=== PATIENT | male | born 1990 | race Caucasian/White ===

== ENCOUNTER 2023-09-15 12:01 | Emergency (ER) | payer BC, SELFPAY ==
[2023-09-15 12:02] VITALS: BP 126/76; PULSE 93; RESP 16; TEMP 36.6; O2SAT 96; BMI 26.2
--- NOTE | 2023-09-15 12:27 | EX.ED.DYSGE1 ---
HPI <AMARIS Choudhary - Last Filed: 09/15/23 16:37> History of Present Illness Chief Complaint: Nausea/Vomiting/Diarrhea Narrative Narrative: Patient presenting today due to nausea, vomiting, and diarrhea that started yesterday evening. He reports that his just gave to their daughter yesterday afternoon here at the hospital. He began feeling nauseous towards the evening and has had persistent watery stools and 1 episode of vomiting. He denies any fevers, chills, abdominal pain, melena, hematochezia, urinary symptoms, and hematemesis. He denies any history of abdominal surgery. [facility] <AMARIS Choudhary - Last Filed: 09/15/23 16:37> [facility] Medical History SVT (supraventricular tachycardia) Home Medications ondansetron 4 mg disintegrating tablet 4 mg PO Q8H PRN PRN Nausea #10 tabs 09/15/23 [Rx Last Taken Unknown] Allergy/AdvReac Type Severity Reaction Status Date / Time No Known Allergies Allergy Verified 09/15/23 12:03 Social History Smoking Status: Never smoker ROS <AMARIS Choudhary - Last Filed: 09/15/23 16:37> ROS ED Constitutional Constitutional ED: Denies chills or fever(s) Cardiovascular Cardiovascular: Denies chest pain Respiratory/Chest Respiratory/Chest: Denies cough or dyspnea Gastrointestinal Gastrointestinal: Reports diarrhea, nausea and vomiting; Denies abdominal pain, constipation or melena Genitourinary Genitourinary ED: Denies dysuria, hematuria or urinary urgency Musculoskeletal Musculoskeletal: Denies arthralgias or myalgias Integumentary Denies rash Neurologic Neurologic: Denies weakness EXAM <AMARIS Choudhary - Last Filed: 09/15/23 16:37> Physical Exam Const Vital Signs: 09/15/23 12:02 Temperature 97.8 F Temperature Source Temporal Pulse Rate 93 Respiratory Rate 16 Blood Pressure 126/76 H Blood Pressure Mean 92 Pulse Ox 96 Oxygen Delivery Method Room Air Positive well nourished, well developed and no apparent distress General Appearance ED: well developed HEENT Reports normocephalic and head/scalp atraumatic HEENT Narrative: Dry mucous membranes Eyes PERRL and EOMs intact bilaterally Neck full ROM and supple Chest Wall inspection of chest normal Resp normal respiratory effort and clear to auscultation bilaterally Cardio regular rate and regular rhythm GI soft to palpation, non-tender, non-distended and no masses Back/Spine normal ROM and normal to inspection Extremity normal to inspection and full ROM Neuro oriented x3, CN's II-XII intact bilaterally, moves all extremities, no focal motor deficits and no sensory deficits noted Sensorium / Orientation: awake and alert Psych mental status grossly normal and thought process normal Skin no rashes or lesions noted and no wounds <Dr. Dameon Baer MD - Last Filed: 09/15/23 13:54> Physical Exam Const Vital Signs: 09/15/23 12:02 Temperature 97.8 F Temperature Source Temporal Pulse Rate 93 Respiratory Rate 16 Blood Pressure 126/76 H Blood Pressure Mean 92 Pulse Ox 96 Oxygen Delivery Method Room Air MDM <AMARIS Choudhary - Last Filed: 09/15/23 16:37> [facility] Narrative Medical decision making narrative: Patient presenting due to nausea, vomiting, diarrhea that started yesterday. He has not had anything to eat since yesterday afternoon and has had very little to drink, he feels dehydrated and clinically does look dry. He will be given IV fluids, Zofran, basic labs will be obtained. Examination is consistent with viral gastroenteritis. On reexamination he reports improvement of his symptoms, he is tolerating p.o. fluids. He will be given a prescription for Zofran. Patient will be discharged home in stable condition and is comfortable with plan. I have personally performed a face to face assessment of the patient and have reviewed the ARCELIA Note. I performed a substantive portion of the visit including all aspects of the following. My perez findings include: History is healthy 32-year-old male just had a baby in the hospital. He has had 2-day history of nausea, vomiting and diarrhea. Today felt lightheaded and dehydrated. No significant abdominal pain. No fever. No dysuria. Exam is [well-appearing 32-year-old male. Vital signs stable afebrile. HEENT exam unremarkable except Etrivex members. Neck nontender no lymphadenopathy. Lungs clear to auscultation bilaterally. Heart regular rhythm rate about 90 no murmur. Abdomen soft, nondistended normal bowel sounds no peritoneal signs. No right upper or right lower quadrant tenderness. No hernia or mass. No obstruction or distention. Moving all 4 extremities. Nontender no edema. Neurologically is awake and alert no focal motor deficits. Answering questions and following commands.] Medical Decision Making [32-year-old male viral syndrome consistent with viral gastroenteritis with nausea, vomiting diarrhea. He is mildly dehydrated. Will be treated with IV fluids and IV Zofran and reassessed.] Other additions or changes: [None] Lab Data Labs: Laboratory Results - last 24 hr 09/15/23 11:45 WBC 11.7 H RBC 5.35 Hgb 16.1 Hct 48.6 MCV 90.8 MCH 30.1 MCHC 33.1 RDW Std Deviation 39.3 RDW Coeff of Tran 11.9 Plt Count 279 MPV 10.2 Immature Gran % (Auto) 0.300 Neut % (Auto) 86.8 H Lymph % (Auto) 7.4 L [place] % (Auto) 4.7 Eos % (Auto) 0.3 Baso % (Auto) 0.5 Absolute Neuts (auto) 10.1 H Absolute Lymphs (auto) 0.86 Nucleated RBC % 0 Sodium 134 L Potassium 4.4 Chloride 106 Carbon Dioxide 21.0 Anion Gap 7 BUN 10 Creatinine 1.11 Estim Creat Clear Calc 93.77 Est GFR (MDRD) Af Amer 97 Est GFR (MDRD) Non-Af 80 BUN/Creatinine Ratio 9.0 L Glucose 108 H Calcium 9.4 <Dr. Dameon Baer MD - Last Filed: 09/15/23 13:54> [facility] Narrative Medical decision making narrative: Patient presenting due to nausea, vomiting, diarrhea that started yesterday. He has not had anything to eat since yesterday afternoon and has had very little to drink, he feels dehydrated and clinically does look dry. He will be given IV fluids, Zofran, basic labs will be obtained. I have personally performed a face to face assessment of the patient and have reviewed the ARCELIA Note. I performed a substantive portion of the visit including all aspects of the following. My perez findings include: History is healthy 32-year-old male just had a baby in the hospital. He has had 2-day history of nausea, vomiting and diarrhea. Today felt lightheaded and dehydrated. No significant abdominal pain. No fever. No dysuria. Exam is [well-appearing 32-year-old male. Vital signs stable afebrile. HEENT exam unremarkable except Etrivex members. Neck nontender no lymphadenopathy. Lungs clear to auscultation bilaterally. Heart regular rhythm rate about 90 no murmur. Abdomen soft, nondistended normal bowel sounds no peritoneal signs. No right upper or right lower quadrant tenderness. No hernia or mass. No obstruction or distention. Moving all 4 extremities. Nontender no edema. Neurologically is awake and alert no focal motor deficits. Answering questions and following commands.] Medical Decision Making [32-year-old male viral syndrome consistent with viral gastroenteritis with nausea, vomiting diarrhea. He is mildly dehydrated. Will be treated with IV fluids and IV Zofran and reassessed.] Other additions or changes: [None] Lab Data Attestation: I reviewed the patient's lab results. Lab results narrative: CBC shows a white count 9.7. H&H is 16 and 48. Platelets 279. Electrolytes show sodium 134 gap 7. Normal BUN of 10 creatinine 1.1. Glucose 108. Labs: Laboratory Results - last 24 hr 09/15/23 11:45 WBC 11.7 H RBC 5.35 Hgb 16.1 Hct 48.6 MCV 90.8 MCH 30.1 MCHC 33.1 RDW Std Deviation 39.3 RDW Coeff of Tran 11.9 Plt Count 279 MPV 10.2 Immature Gran % (Auto) 0.300 Neut % (Auto) 86.8 H Lymph % (Auto) 7.4 L [place] % (Auto) 4.7 Eos % (Auto) 0.3 Baso % (Auto) 0.5 Absolute Neuts (auto) 10.1 H Absolute Lymphs (auto) 0.86 Nucleated RBC % 0 Sodium 134 L Potassium 4.4 Chloride 106 Carbon Dioxide 21.0 Anion Gap 7 BUN 10 Creatinine 1.11 Estim Creat Clear Calc 93.77 Est GFR (MDRD) Af Amer 97 Est GFR (MDRD) Non-Af 80 BUN/Creatinine Ratio 9.0 L Glucose 108 H Calcium 9.4 Discharge Plan Triage Chief Complaint: Nausea/Vomiting/Diarrhea ED Midlevel Provider: Tammie Delgado ED Provider: Dameon Baer Dx/Rx/DC Orders Clinical Impression: Acute dehydration, Viral gastroenteritis Instructions: ED Gastroenteritis, Viral (Adult) Prescriptions: New ondansetron 4 mg tablet,disintegrating 4 mg PO Q8H PRN PRN (Reason: Nausea) Qty: 10 0RF Primary Care Provider: Care Physician,No Primary Referrals: NOT,DEFINED [Non-Staff] - Activity Restrictions/Additional Instructions: Stay well-hydrated, you can also try [id number] Imodium for diarrhea according to package directions, return for any worsening of your symptoms. Disposition Disposition: Home, Self Care Discharge Date/Time: 09/15/23 14:15
[2023-09-15] MEDS: Ondansetron 4 MG/2 ML Vial IV (12:54)
[2023-09-15] MEDS: 0.9% Normal Saline (1000mL) 1,000 ML 999 ML IV (12:54)
[2023-09-15] MEDS: Loperamide 2 MG Capsule 4 MG PO (12:54)
[2023-09-15 12:58] LABS: Absolute Lymphocyte Count 0.86 X10^3/uL (0.83-4.51); Absolute Neutrophil Count 10.1 X10^3/uL (2.0-7.7); Basophil# 0.06 X10^3/uL; Basophil% 0.5 % (0-1); Eosinophil# 0.04 X10^3/uL; Eosinophils% 0.3 % (0-5); Hematocrit 48.6 % (40-54); Hemoglobin 16.1 g/dL (13.0-16.5); Lymphocyte # 0.86 X10^3/ul (0.83-4.51); Lymphocyte % 7.4 % (19-41); Mean Corp Hgb Conc 33.1 g/dL (32-36); Mean Corpuscular Hgb 30.1 pg (27.0-32.0); Mean Corpuscular Volume 90.8 fL (80-94); Mean Platelet Vol. 10.2 fl (6.2-12.0); Monocyte# 0.55 X10^3/uL; Monocyte% 4.7 % (0-10); NRBC Flagged by Analyzer 0 % (0-5); Neutrophil % 86.8 % (47-70); Platelet Count 279 K/mm3 (150-450); RBC Distribution Width CV 11.9 % (11.6-14.6); RBC Distribution Width SD 39.3 fl (35.1-43.9); Red Blood Count 5.35 M/mm3 (4.6-6.2); White Blood Count 11.7 K/mm3 (4.4-11.0)
[2023-09-15 13:20] LABS: Anion Gap 7 (5-15); BUN 10 mg/dL (7-18); Calcium,Total 9.4 mg/dL (8.5-10.1); Chloride 106 mmol/L (98-107); Creatinine, Serum 1.11 mg/dL (0.70-1.30); EST Glomerular Filtration Rate 80 mL/min (>60); Est Glom Filt Rate - Afr Amer 97 mL/min (>60); Estimated Creatinine Clearance 93.77 ml/min; Glucose 108 mg/dL (74-106); Potassium 4.4 mmol/L (3.5-5.1); Sodium Level 134 mmol/L (136-145)
== END 2023-09-15 14:15 | disposition home or self-care (01) ==
PROVIDERS: Physician Assistant; Emergency Provider Emergency Medicine; Visit Provider Emergency Medicine
DX: E86.0 Dehydration (principal); A08.4 Viral intestinal infection, unspecified
CPT/HCPCS: 80048; 85025; 96361; 96374; 99283; J7030; J2405